=== PATIENT | male | born 1960 | race Caucasian/White ===

== ENCOUNTER 2021-05-22 21:29 | Emergency (ER) | payer OTHER ==
[~2021-05-22] VITALS: Ht 175.3 cm; Wt 70.8 kg
[2021-05-22] MEDS ORDERED: LOTREL 10-20 M1 EACH PO (21:36)
[2021-05-22] MEDS ORDERED: ATARAX25 MG PO (21:37)
[2021-05-22] MEDS ORDERED: LIPITOR20 MG (21:37)
[2021-05-22] MEDS ORDERED: POLYMYXIN B-TMP10 ML OP (22:27)
== END 2021-05-22 22:43 | disposition home or self-care (01) ==
LOC: ER 21:29
DX: H00.015 Hordeolum externum left lower eyelid (principal); I10 Essential (primary) hypertension